=== PATIENT | male | born 1955 | race Caucasian/White ===

== ENCOUNTER 2017-04-22 12:17 | Inpatient (IN) | payer OTHER ==
[~2017-04-22] VITALS: Ht 177.8 cm; Wt 98.4 kg
[2017-04-22] MEDS ORDERED: ENOXAPARIN 40 MG/0.4 ML SQ SCH (15:00)
[2017-04-22] MEDS ORDERED: PLEASE ENTER ALLERGIES MC SCH (15:30)
[2017-04-22] MEDS ORDERED: PLEASE ENTER HEIGHT AND WEIGHT MC SCH (15:30)
[2017-04-22 15:31] VITALS: BP 174/143
[2017-04-22 15:38] LABS: BASOPHILS # (AUTO) 0.06 x10^3/uL (0-0.1); BASOPHILS % (AUTO) 1 % (0-1); EOSINOPHILS # (AUTO) 0.32 x10^3/uL (0-0.4); EOSINOPHILS % (AUTO) 4 % (1-7); LYMPHOCYTES # (AUTO) 1.79 x10^3/uL (1-3.4); LYMPHOCYTES % (AUTO) 24 % (22-44); MD NO; MEAN CORPUSCULAR HEMOGLOBIN 32.7 pg (27.5-34.5); MEAN CORPUSCULAR VOLUME 96.1 fL (81-97); MEAN PLATELET VOLUME 7.9 fL (7.4-10.4); MONOCYTES % (AUTO) 6 % (2-9); NEUTROPHILS # (AUTO) 4.78 x10^3/uL (1.8-6.8); NEUTROPHILS % (AUTO) 65 % (42-75); PLATELET COUNT 194 x10^3/uL (130-400); RED BLOOD COUNT 5.36 x10^6/uL (4.38-5.82); RED CELL DISTRIBUTION WIDTH 14.9 % (9.4-14.8)
[2017-04-22 15:45] LABS: ALANINE AMINOTRANSFERASE 51 U/L (12-78); ALBUMIN 3.6 g/dL (3.4-5.0); ANION GAP 9 mmol/L (5-15); CALCIUM 8.4 mg/dL (8.5-10.1); CHLORIDE 105 mmol/L (98-107); CREATININE 0.86 mg/dL (0.7-1.3)
[2017-04-22 15:47] LABS: ALKALINE PHOSPHATASE 67 U/L (45-117); BILIRUBIN,TOTAL 0.8 mg/dL (0.2-1.0); TOTAL PROTEIN 6.9 g/dL (6.4-8.2)
[2017-04-22] MEDS: METOPROLOL TARTRATE 50 MG TABLET PO SCH ×2 (16:55→20:30)
[2017-04-22 18:02] VITALS: BP 126/92
[2017-04-22 19:55] VITALS: BP 120/84
[2017-04-22 20:23] LABS: CHOL/HDL RATIO 4.6; LDL/HDL RATIO 3.1 (0.5-3.0); THYROID STIMULATING HORMONE 2.64 mIU/L (0.358-3.740)
[2017-04-22] MEDS: APIXABAN 5 MG TABLET PO SCH (20:30)
[2017-04-23 01:00] VITALS: BP 118/80
[2017-04-23] MEDS ORDERED: ASPIRIN 325 MG TABLET EC PO SCH (06:00)
[2017-04-23 07:42] VITALS: BP 129/90
[2017-04-23] MEDS: METOPROLOL TARTRATE 50 MG TABLET PO SCH ×3 (10:07→21:42)
[2017-04-23] MEDS: APIXABAN 5 MG TABLET PO SCH ×2 (10:07→21:42)
[2017-04-23] MEDS: SIMVASTATIN 40 MG TABLET PO SCH (10:07)
[2017-04-23 15:46] VITALS: BP 143/82
[2017-04-23 19:30] VITALS: BP 133/93
[2017-04-24 02:48] VITALS: BP 142/90
[2017-04-24] MEDS: METOPROLOL TARTRATE 50 MG TABLET PO SCH ×3 (03:37→16:16)
[2017-04-24 05:25] LABS: BASOPHILS # (AUTO) 0.07 x10^3/uL (0-0.1); BASOPHILS % (AUTO) 1 % (0-1); EOSINOPHILS # (AUTO) 0.21 x10^3/uL (0-0.4); EOSINOPHILS % (AUTO) 3 % (1-7); LYMPHOCYTES # (AUTO) 1.55 x10^3/uL (1-3.4); LYMPHOCYTES % (AUTO) 19 % (22-44); MD NO; MEAN CORPUSCULAR HEMOGLOBIN 32.6 pg (27.5-34.5); MEAN CORPUSCULAR HGB CONC 34.2 g/dL (33.2-36.2); MEAN CORPUSCULAR VOLUME 95.3 fL (81-97); MEAN PLATELET VOLUME 8.3 fL (7.4-10.4); MONOCYTES % (AUTO) 5 % (2-9); NEUTROPHILS # (AUTO) 5.98 x10^3/uL (1.8-6.8); NEUTROPHILS % (AUTO) 73 % (42-75); PLATELET COUNT 186 x10^3/uL (130-400); RED BLOOD COUNT 5.49 x10^6/uL (4.38-5.82); RED CELL DISTRIBUTION WIDTH 14.8 % (9.4-14.8)
[2017-04-24 05:30] LABS: ANION GAP 7 mmol/L (5-15); CALCIUM 8.7 mg/dL (8.5-10.1); CHLORIDE 106 mmol/L (98-107)
[2017-04-24 05:31] LABS: CREATININE 0.78 mg/dL (0.7-1.3)
[2017-04-24 07:59] VITALS: BP 126/86
[2017-04-24] MEDS: APIXABAN 5 MG TABLET PO SCH ×2 (09:27→20:40)
[2017-04-24 15:58] VITALS: BP 119/85
[2017-04-24] MEDS: DILTIAZEM 30 MG TABLET PO SCH ×2 (17:30→20:40)
[2017-04-24 19:50] VITALS: BP 126/88
[2017-04-24] MEDS: SIMVASTATIN 40 MG TABLET PO SCH (20:40)
[2017-04-24] MEDS ORDERED: METOPROLOL TARTRATE 50 MG TABLET PO SCH (21:00)
[2017-04-25 01:52] VITALS: BP 119/87
[2017-04-25 08:30] VITALS: BP 119/85
[2017-04-25] MEDS: APIXABAN 5 MG TABLET PO SCH ×2 (09:44→20:49)
[2017-04-25] MEDS: SIMVASTATIN 40 MG TABLET PO SCH (09:45)
[2017-04-25] MEDS: DILTIAZEM 120 MG CAP.ER.24H PO SCH (10:41)
[2017-04-25 14:30] VITALS: BP 126/87
[2017-04-25 18:53] VITALS: BP 125/85
[2017-04-25] MEDS: METOPROLOL TARTRATE 25 MG TABLET PO SCH (20:49)
[2017-04-26 02:00] VITALS: BP 112/76
[2017-04-26 08:30] VITALS: BP 114/79
[2017-04-26] MEDS: APIXABAN 5 MG TABLET PO SCH ×2 (09:02→20:44)
[2017-04-26] MEDS: METOPROLOL TARTRATE 25 MG TABLET PO SCH ×2 (09:03→20:44)
[2017-04-26] MEDS: SIMVASTATIN 40 MG TABLET PO SCH (09:03)
[2017-04-26] MEDS: DILTIAZEM 120 MG CAP.ER.24H PO SCH (09:04)
[2017-04-26 14:00] VITALS: BP 118/71
[2017-04-26 18:38] VITALS: BP 138/87
[2017-04-27 01:58] VITALS: BP 127/85
[2017-04-27 07:20] VITALS: BP 116/84
[2017-04-27] MEDS: DILTIAZEM 120 MG CAP.ER.24H PO SCH (09:00)
[2017-04-27] MEDS: METOPROLOL TARTRATE 25 MG TABLET PO SCH ×2 (09:40→20:59)
[2017-04-27] MEDS: APIXABAN 5 MG TABLET PO SCH ×2 (09:40→20:59)
[2017-04-27] MEDS: SIMVASTATIN 40 MG TABLET PO SCH (09:41)
[2017-04-27 13:14] VITALS: BP 118/80
[2017-04-27 18:59] VITALS: BP 116/77
[2017-04-28 02:00] VITALS: BP 112/75
[2017-04-28 07:50] VITALS: BP 137/93
[2017-04-28 07:55] VITALS: BP 137/79
[2017-04-28] MEDS: APIXABAN 5 MG TABLET PO SCH (08:44)
[2017-04-28] MEDS: DILTIAZEM 120 MG CAP.ER.24H PO SCH (08:44)
[2017-04-28] MEDS: METOPROLOL TARTRATE 25 MG TABLET PO SCH (08:44)
[2017-04-28] MEDS: SIMVASTATIN 40 MG TABLET PO SCH (08:45)
[2017-04-28] MEDS ORDERED: METO25TA35 PO (10:41)
[2017-04-28] MEDS ORDERED: DILT120C9 PO (10:41)
[2017-04-28] MEDS ORDERED: APIX5TAB PO (10:41)
[2017-04-28] MEDS ORDERED: ATOR40TA78 PO (10:41)
[2017-04-28 13:25] VITALS: BP 126/85
== END 2017-04-28 16:33 | DRG 65 ==
LOC: 4WST 13:44 → EDBD 13:44 → 4WST 14:31
PROVIDERS: ADMIT Internal Medicine Pulmonary Disease; ATTEND Internal Medicine Pulmonary Disease
DX: I63.9 Cerebral infarction, unspecified (principal); I48.92 Unspecified atrial flutter; I48.91 Unspecified atrial fibrillation; I10 Essential (primary) hypertension; F17.210 Nicotine dependence, cigarettes, uncomplicated; E78.5 Hyperlipidemia, unspecified; E66.9 Obesity, unspecified; H54.61 Unqualified visual loss, right eye, normal vision left eye; Z79.01 Long term (current) use of anticoagulants; Z79.899 Other long term (current) drug therapy; Z86.73 Personal history of transient ischemic attack (TIA), and cerebral infarction without residual deficits; Z68.31 Body mass index [BMI] 31.0-31.9, adult
CPT/HCPCS: 36415; 70450; 70551; 80048; 80053; 80061; 83735; 84100; 84443; 85025; 93005; 93306; J1650; 92523-GN

== ENCOUNTER 2017-12-30 10:51 | Day surgery (SDC) | payer OTHER ==
[~2017-12-30] VITALS: Ht 177.8 cm; Wt 116.4 kg
[~2017-12-30 10:51] MED LIST: APIX5TAB PO; ATOR40TA78 PO; DILT120C9 PO; METO25TA35 PO
[2017-12-30] MEDS ORDERED: DEXTROSE 5% 500 ML IV PRN (11:11)
[2017-12-30] MEDS ORDERED: SENN8.6T5 PO (11:28)
[2017-12-30] MEDS ORDERED: FAMO20TA7 PO (11:28)
[2017-12-30] MEDS ORDERED: POTA20TA14 PO (11:28)
[2017-12-30] MEDS ORDERED: ASPI-621 PO (11:28)
[2017-12-30] MEDS ORDERED: APIX5TAB PO (11:28)
[2017-12-30] MEDS ORDERED: COLC0.6T37 PO (11:28)
[2017-12-30] MEDS ORDERED: FURO-92 PO (11:28)
[2017-12-30] MEDS ORDERED: AMIO200T42 PO (11:28)
[2017-12-30] MEDS ORDERED: PLEASE ENTER HEIGHT AND WEIGHT MC SCH (11:30)
[2017-12-30 12:05] LABS: BASOPHILS % (AUTO) 0 % (0-1); EOSINOPHILS # (AUTO) 0.06 x10^3/uL (0-0.4); EOSINOPHILS % (AUTO) 1 % (1-7); LYMPHOCYTES # (AUTO) 1.44 x10^3/uL (1-3.4); LYMPHOCYTES % (AUTO) 15 % (22-44); MD NO; MEAN CORPUSCULAR HEMOGLOBIN 31.6 pg (27.5-34.5); MEAN CORPUSCULAR VOLUME 92.8 fL (81-97); MEAN PLATELET VOLUME 7.1 fL (7.4-10.4); MONOCYTES # (AUTO) 0.45 x10^3/uL (0.2-0.8); MONOCYTES % (AUTO) 5 % (2-9); NEUTROPHILS # (AUTO) 7.75 x10^3/uL (1.8-6.8); NEUTROPHILS % (AUTO) 80 % (42-75); PLATELET COUNT 288 x10^3/uL (130-400); RED BLOOD COUNT 4.85 x10^6/uL (4.38-5.82); RED CELL DISTRIBUTION WIDTH 14.3 % (9.4-14.8)
[2017-12-30 12:17] LABS: ANION GAP 9 mmol/L (5-15); CHLORIDE 101 mmol/L (98-107); CREATININE 0.92 mg/dL (0.7-1.3)
[2017-12-30 12:21] VITALS: BP 109/77
[2017-12-30] MEDS ORDERED: PROPOFOL 10 MG/ML, 20ML ONE (12:44)
== END 2017-12-30 13:55 | disposition home or self-care (01) ==
LOC: CACL 10:51
PROVIDERS: ATTEND Internal Medicine Cardiovascular Disease
DX: I48.92 Unspecified atrial flutter (principal); Z79.82 Long term (current) use of aspirin; Z79.899 Other long term (current) drug therapy; Z86.73 Personal history of transient ischemic attack (TIA), and cerebral infarction without residual deficits
CPT/HCPCS: 36415; 80048; 85025; 92960; J2704

== ENCOUNTER 2018-01-06 12:38 | Day surgery (SDC) | payer OTHER ==
[~2018-01-06] VITALS: Ht 175.3 cm; Wt 112.5 kg
[~2018-01-06 12:38] MED LIST changes: +AMIO200T42 PO; +ASPI-621 PO; +COLC0.6T37 PO; +FAMO20TA7 PO; +FURO-92 PO; +POTA20TA14 PO; +SENN8.6T5 PO
[2018-01-06] MEDS ORDERED: SODIUM CHLORIDE 0.9% 500 ML IV PRN (12:44)
[2018-01-06 12:55] VITALS: BP 127/71
== END 2018-01-06 13:55 | disposition home or self-care (01) ==
LOC: CACL 12:38
PROVIDERS: ATTEND Internal Medicine Cardiovascular Disease
DX: I48.91 Unspecified atrial fibrillation (principal); Z53.9 Procedure and treatment not carried out, unspecified reason
CPT/HCPCS: 93005

== ENCOUNTER 2018-01-14 07:43 | Observation (INO) | payer OTHER ==
[~2018-01-14] VITALS: Ht 175.3 cm; Wt 120.1 kg
[2018-01-14] MEDS ORDERED: SODIUM CHLORIDE 0.9% 1,000 ML IV SCH (08:16)
[2018-01-14] MEDS ORDERED: PLEASE ENTER HEIGHT AND WEIGHT MC SCH (08:30)
[2018-01-14 08:40] VITALS: BP 127/89
[2018-01-14] MEDS ORDERED: AMOX500T PO (08:54)
[2018-01-14] MEDS ORDERED: HYDR-3245 PO (08:54)
[2018-01-14 09:26] LABS: BASOPHILS # (AUTO) 0.02 x10^3/uL (0-0.1); BASOPHILS % (AUTO) 0 % (0-1); EOSINOPHILS # (AUTO) 0.28 x10^3/uL (0-0.4); EOSINOPHILS % (AUTO) 4 % (1-7); LYMPHOCYTES # (AUTO) 0.99 x10^3/uL (1-3.4); LYMPHOCYTES % (AUTO) 15 % (22-44); MD NO; MEAN CORPUSCULAR HEMOGLOBIN 31.1 pg (27.5-34.5); MEAN CORPUSCULAR HGB CONC 33.4 g/dL (33.2-36.2); MEAN CORPUSCULAR VOLUME 93.3 fL (81-97); MEAN PLATELET VOLUME 7.8 fL (7.4-10.4); MONOCYTES # (AUTO) 0.42 x10^3/uL (0.2-0.8); MONOCYTES % (AUTO) 7 % (2-9); NEUTROPHILS # (AUTO) 4.75 x10^3/uL (1.8-6.8); NEUTROPHILS % (AUTO) 74 % (42-75); PLATELET COUNT 251 x10^3/uL (130-400); RED BLOOD COUNT 4.42 x10^6/uL (4.38-5.82); RED CELL DISTRIBUTION WIDTH 14.2 % (9.4-14.8)
[2018-01-14 09:40] LABS: ALBUMIN 2.9 g/dL (3.4-5.0); ANION GAP 6 mmol/L (5-15); CHLORIDE 107 mmol/L (98-107)
[2018-01-14 09:44] LABS: ALANINE AMINOTRANSFERASE 56 U/L (12-78); ALKALINE PHOSPHATASE 69 U/L (45-117); BILIRUBIN,TOTAL 0.3 mg/dL (0.2-1.0); CREATININE 0.82 mg/dL (0.7-1.3); TOTAL PROTEIN 6.9 g/dL (6.4-8.2)
[2018-01-14] MEDS ORDERED: HEPARIN 1,000 UNITS/ML, 10ML ONE ×4 (09:52→11:34)
[2018-01-14] MEDS ORDERED: ISOPROTERENOL 0.2MG/ML, 5ML ONE (09:52)
[2018-01-14] MEDS ORDERED: PROTAMINE SULFATE 10 MG/ML, 5ML ONE (09:52)
[2018-01-14] MEDS ORDERED: ALBUTEROL SULFATE 200 PUFFS/8.5 GR INH ONE (10:00)
[2018-01-14] MEDS ORDERED: MIDAZOLAM 1 MG/ML, 2ML ONE (10:02)
[2018-01-14] MEDS ORDERED: FENTANYL PF 250 MCG/5ML ONE (10:03)
[2018-01-14] MEDS ORDERED: PROPOFOL 10 MG/ML, 20ML ONE ×2 (10:36→11:39)
[2018-01-14] MEDS ORDERED: ROCURONIUM 10 MG/ML,10ML ONE (11:39)
[2018-01-14] MEDS ORDERED: DEXAMETHASONE 4 MG/ML, 1ML ONE ×2 (11:39)
[2018-01-14] MEDS ORDERED: ONDANSETRON 2MG/ML, 2ML ONE (11:39)
[2018-01-14] MEDS ORDERED: SUCCINYLCHOLINE 20 MG/ML, 10ML ONE (11:39)
[2018-01-14] MEDS ORDERED: HYDROcodone/APAP 10/325 MG TABLET PO PRN (12:30)
[2018-01-14] MEDS ORDERED: SENNOSIDES 8.6 MG TABLET PO PRN (12:30)
[2018-01-14] MEDS ORDERED: ACETAMINOPHEN 325 MG TABLET PO PRN ×2 (12:30→13:00)
[2018-01-14] MEDS ORDERED: ZOLPIDEM 5MG TABLET PO PRN (12:30)
[2018-01-14] MEDS ORDERED: APIXABAN 5 MG TABLET ONE (12:45)
[2018-01-14] MEDS: APIXABAN 5 MG TABLET PO SCH (12:49)
[2018-01-14] MEDS ORDERED: ONDANSETRON ODT 8 MG PO PRN (13:00)
[2018-01-14] MEDS ORDERED: MORPHINE SULFATE 4 MG/ML, 1ML IVPush PRN (13:00)
[2018-01-14] MEDS ORDERED: HALOPERIDOL 5 MG/ML IV PRN (13:00)
[2018-01-14] MEDS ORDERED: LORazepam 2 MG/ML, 1ML IVPush PRN (13:00)
[2018-01-14] MEDS ORDERED: HYDROmorphone 1 MG/ML, 1ML IV PRN (13:00)
[2018-01-14] MEDS ORDERED: ALBUTEROL SULFATE 2.5 MG/3 ML NPPB PRN (13:00)
[2018-01-14] MEDS ORDERED: PROMETHAZINE 12.5 MG SUPP PR PRN (13:00)
[2018-01-14] MEDS ORDERED: MIDAZOLAM 1 MG/ML, 2ML IV PRN (13:00)
[2018-01-14] MEDS ORDERED: PROMETHAZINE 25 MG/ML, 1ML IV PRN (13:00)
[2018-01-14] MEDS ORDERED: OXYcodone 5 MG/5 ML ORAL.SOL UDC PO PRN (13:00)
[2018-01-14] MEDS ORDERED: LABETALOL 5MG/ML, 20ML IV PRN (13:00)
[2018-01-14] MEDS ORDERED: MEPERIDINE/PF 25MG/0.5ML IVPush PRN (13:00)
[2018-01-14] MEDS ORDERED: hydrALAzine 20 MG/ML, 1ML IV PRN (13:00)
[2018-01-14] MEDS ORDERED: ONDANSETRON 2MG/ML, 2ML IV PRN (13:00)
[2018-01-14] MEDS ORDERED: EPHEDRINE 50 MG/ML, 1ML IVPush PRN (13:00)
[2018-01-14] MEDS ORDERED: FENTANYL PF 100 MCG/2ML IV PRN (13:00)
[2018-01-14 14:00] VITALS: BP 120/73
[2018-01-14] MEDS: AMOXICILLIN 500 MG CAPSULE PO SCH ×2 (16:39→21:52)
[2018-01-14 20:00] VITALS: BP 114/65
[2018-01-14] MEDS ORDERED: ATORVASTATIN 40 MG TABLET PO SCH (21:00)
[2018-01-14] MEDS: FAMOTIDINE 20 MG TABLET PO SCH (21:52)
[2018-01-15 02:00] VITALS: BP 131/80
[2018-01-15] MEDS ORDERED: ACET325T14 PO (08:13)
[2018-01-15 08:30] VITALS: BP 138/88
[2018-01-15] MEDS: FAMOTIDINE 20 MG TABLET PO SCH (08:56)
[2018-01-15] MEDS: APIXABAN 5 MG TABLET PO SCH (08:56)
[2018-01-15] MEDS: AMOXICILLIN 500 MG CAPSULE PO SCH (08:56)
[2018-01-15 14:00] VITALS: BP 132/83
== END 2018-01-15 15:15 | disposition home or self-care (01) ==
LOC: CACL 07:43 → ORIP 12:18 → 5SO 14:42 → DCLOUNGE 01-15 15:05
PROVIDERS: ADMIT Internal Medicine Cardiovascular Disease; ATTEND Internal Medicine Cardiovascular Disease
DX: I48.91 Unspecified atrial fibrillation (principal); I48.92 Unspecified atrial flutter; I63.9 Cerebral infarction, unspecified
CPT/HCPCS: 36415; 71046; 80053; 85025; 93308; 93321; 93613; 93655; 93656; 93662; C1730; C1731; C1732; C1759; C1766; C1893; C1894; G0378; J0330; J1100; J1644; J2250; J2405; J2704; J2720; J3010; 85347

== ENCOUNTER 2018-02-06 10:09 | Day surgery (SDC) | payer OTHER ==
[~2018-02-06] VITALS: Ht 175.3 cm; Wt 112.7 kg
[~2018-02-06 10:09] MED LIST changes: +ACET325T14 PO; +AMOX500T PO; +HYDR-3245 PO
[2018-02-06 10:46] VITALS: BP 105/57
[2018-02-06 11:10] LABS: BASOPHILS % (AUTO) 1 % (0-1); EOSINOPHILS % (AUTO) 2 % (1-7); LYMPHOCYTES % (AUTO) 16 % (22-44); MEAN CORPUSCULAR HGB CONC 33.8 g/dL (33.2-36.2); MEAN CORPUSCULAR VOLUME 91.7 fL (81-97); MEAN PLATELET VOLUME 7.9 fL (7.4-10.4); MONOCYTES % (AUTO) 8 % (2-9); NEUTROPHILS % (AUTO) 73 % (42-75); PLATELET COUNT 217 x10^3/uL (130-400); RED BLOOD COUNT 4.79 x10^6/uL (4.38-5.82); RED CELL DISTRIBUTION WIDTH 14.6 % (9.4-14.8)
[2018-02-06 11:11] LABS: BASOPHILS # (AUTO) 0.04 x10^3/uL (0-0.1); EOSINOPHILS # (AUTO) 0.16 x10^3/uL (0-0.4); LYMPHOCYTES # (AUTO) 1.47 x10^3/uL (1-3.4); MD NO; MONOCYTES # (AUTO) 0.71 x10^3/uL (0.2-0.8); NEUTROPHILS # (AUTO) 6.59 x10^3/uL (1.8-6.8)
[2018-02-06 11:16] LABS: ANION GAP 8 mmol/L (5-15); CALCIUM 8.4 mg/dL (8.5-10.1); CHLORIDE 105 mmol/L (98-107); CREATININE 0.75 mg/dL (0.7-1.3)
[2018-02-06] MEDS ORDERED: PROPOFOL 10 MG/ML, 20ML ONE (16:19)
== END 2018-02-06 13:36 | disposition home or self-care (01) ==
LOC: CACL 10:09 → CCU 12:50 → CACL 13:36
PROVIDERS: ATTEND Internal Medicine Cardiovascular Disease
DX: I48.91 Unspecified atrial fibrillation (principal); I63.9 Cerebral infarction, unspecified; E78.5 Hyperlipidemia, unspecified; E66.9 Obesity, unspecified; Z79.82 Long term (current) use of aspirin; Z79.899 Other long term (current) drug therapy
CPT/HCPCS: 36415; 71046; 80048; 85025; 92960; 93005; J2704; G0378